=== PATIENT | female | born 1975 | race Caucasian/White ===

== ENCOUNTER 2023-06-06 16:48 | Outpatient (CLI) | payer BC, SELFPAY ==
--- NOTE | ~2023-06-06 | US_ITS ---
EXAMINATION: US retroperitoneal comp DATE: 06/06/2023 18:02 INDICATION: Recurrent urinary tract infections TECHNIQUE: Multiple ultrasound grayscale images of the kidneys were obtained. COMPARISON: None. FINDINGS: The right kidney measures 11.4 x 5.4 x 5.4 cm. The left kidney measures 11.4 x 5.6 x 5.7 cm. The kidn eys demonstrate normal echogenicity. A prominent right extrarenal pelvis. There is no hydronephrosis in either kidney. No stones identified. The bladder is normal. IMPRESSION: 1. Mildly prominent right extrarenal pelvis. Otherwise normal kidneys without hydronephrosis. Reviewed, dictated and finalized at location A. OMS PORT DIRECTOR
== END 2023-06-06 16:49 | disposition home or self-care (01) ==
PROVIDERS: PCP Physician Assistant; Visit Provider Physician Assistant
DX: N39.0 Urinary tract infection, site not specified (principal)
CPT/HCPCS: 76770

== ENCOUNTER 2023-06-30 07:42 | Outpatient (CLI) | payer BC, SELFPAY ==
--- NOTE | ~2023-06-30 | CT_ITS ---
EXAMINATION: CT abdomen pelvis wo/w con DATE: 06/30/2023 09:26 INDICATION: Recurrent urinary tract infection TECHNIQUE: Computed tomography (CT) of the abdomen and pelvis was performed without intravenous contr ast. CT of the abdomen and pelvis was then performed with a total of 130 mL Omnipaque 350 intravenous contrast using a double-bolus technique for simultaneous opacification of the renal parenchyma and r enal collecting system. The dose-length product (DLP) was 1591.19 mGy-cm. Automated exposure control and iterative reconstruction technique were employed. COMPARISON: None FINDINGS: Minimal dependent atelectasis is present in the lung bases. The heart size is normal. There is a small sliding hiatal hernia. The liver, spleen, pancreas, gallbladder, and adrenal glands are n ormal. Cysts of the left kidney measure up to 6 mm. No suspicious renal or urothelial lesion identifi ed. There is mild left hydronephrosis. There is moderate right hydronephrosis and proximal right hydr oureter with relatively abrupt transition in the pelvis but no obstructing mass or calcification iden tified. No stones are identified in the kidneys, ureters, or bladder. There is moderate distention of the urinary bladder. There are nabothian cysts of the cervix. No pathologically enlarged abdominal o r pelvic lymph nodes are identified. No free intraperitoneal gas or evidence of bowel obstruction. A moderate volume of colonic stool is present. There is mild lumbar spondylosis. IMPRESSION: 1. Moderate right hydronephrosis and proximal right hydroureter without obstructing mass or calcifica tion is identified. 2. Mild left hydronephrosis. 3. No suspicious renal or urothelial lesion identified. Reviewed, dictated and finalized at location B. TTER SETTER UP IMPRESSION: 1. Moderate right hydronephrosis and proximal right hydroureter without obstruc ting mass or calcification is identified. 2. Mild left hydronephrosis. 3. No suspicious renal or urothelial lesion identified.
--- NOTE | ~2023-06-30 | NM_ITS ---
EXAMINATION: ERIN browning renal scan DATE: 06/30/2023 08:58 INDICATION: Bilateral hydronephrosis. Recurrent urinary tract infection. TECHNIQUE: 7.6 mCi Tc-99m MAG3 was administered IV. 40 mg furosemide was administered IV immediately afterward. The patient was scanned in the supine position. A posterior abdominal radionuclide angiog ethel was obtained. A subsequent time course of static images of the kidneys, ureters, and bladder was obtained. COMPARISON: CT abdomen and pelvis 06/30/2023, ultrasound kidneys 06/06/2023 FINDINGS: The posterior abdominal radionuclide angiogram and sequential static images show normal siz e, position, and morphology of the kidneys. Peak renal parenchymal uptake was 2 min in right kidney a nd 2 min in left kidney (normal peak 3-5 minutes). The relative early renal uptake was 48% on the ri ght and 52% on the left (<40% is abnormal). No abnormalities of the ureters or bladder are seen. T1/2 for clearance of activity from the right kidney and proximal collecting system was 5 minutes. T1/2 for clearance of activity from the left kidney and proximal collecting system was 5 minutes. IMPRESSION: 1. Symmetric kidney function. 2. No delay in contrast clearance from either kidney to suggest fixed obstruction. Reviewed, dictated and finalized at location A. AULIC STRAINER OPERATOR IMPRESSION: 1. Symmetric kidney function. 2. No delay in contrast clearance from either kidney to suggest fixed obstruct ion.
== END 2023-06-30 07:43 | disposition home or self-care (01) ==
PROVIDERS: PCP Physician Assistant; Visit Provider Physician Assistant
DX: N39.0 Urinary tract infection, site not specified (principal)
CPT/HCPCS: 74178; 78708; A9562; J1940; Q9967